=== PATIENT | female | born 1980 | race Asian ===

== ENCOUNTER 2016-05-07 09:25 | Inpatient (IN) | payer SELFPAY ==
[~2016-05-07] VITALS: Ht 160 cm; Wt 66.7 kg
[2016-05-07] MEDS ORDERED: LACTATED RINGERS 1,000 ML IV SCH (10:18)
[2016-05-07] MEDS ORDERED: NALBUPHINE HYDROCHLORIDE 10 MG/ML VIAL IVP PRN (10:20)
[2016-05-07] MEDS ORDERED: METHYLERGONOVINE 0.2 MG/ML AMP IM PRN (10:20)
[2016-05-07] MEDS ORDERED: CARBOPROST 250 MCG/ML AMP IM PRN (10:20)
[2016-05-07] MEDS ORDERED: PROMETHAZINE 25 MG/ML VIAL IVP PRN (10:20)
[2016-05-07] MEDS ORDERED: OXYTOCIN 10 UNITS/ML VIAL IM SCH (10:20)
[2016-05-07] MEDS ORDERED: PROMETHAZINE 25 MG/ML VIAL IVP SCH (10:20)
[2016-05-07] MEDS ORDERED: LIDOCAINE 1% 500 MG/50 ML VIAL INJ SCH (10:45)
[2016-05-07] MEDS ORDERED: LIDOCAINE 1% 50 ML ONE (10:50)
[2016-05-07] MEDS ORDERED: OXYTOCIN 10 UNITS/ML VIAL ONE (10:51)
[2016-05-07] MEDS ORDERED: OXYTOCIN 20 UNITS/LR PREMIX 1,000 ML IV SCH (11:00)
[2016-05-07] MEDS ORDERED: OXYTOCIN 20 UNITS/LR PREMIX 1,000 ML IV ONE ×2 (11:02→14:42)
[2016-05-07] MEDS ORDERED: MISOPROSTOL 100 MCG TAB ONE (14:44)
[2016-05-07] MEDS ORDERED: MISOPROSTOL 100 MCG TAB RC SCH (14:55)
[2016-05-07] MEDS ORDERED: CARBOPROST 250 MCG/ML AMP IM ONE (14:57)
[2016-05-07] MEDS ORDERED: INFLUENZA VIRUS VACCINE QUAD 0.5 ML SYR IMVAC SCH (22:50)
--- NOTE | 2016-05-08 10:31 | NUR ---
PATIENT HAS BEEN SCREENED AND CATEGORIZED LOW NUTRITION RISK. PATIENT WILL BE SEEN WITHIN 7 DAYS OF ADMISSION. 05/14/[address]
== END 2016-05-08 16:15 | disposition home or self-care (01) | DRG 775 ==
LOC: MLD 09:25 → MFCC 17:18
PROVIDERS: ADMIT Obstetrics & Gynecology; ATTEND Obstetrics & Gynecology
PROC: 10E0XZZ Delivery of Products of Conception, External Approach (ICD-10-PCS; principal; 2016-05-07)
PROC: 10907ZC Drainage of Amniotic Fluid, Therapeutic from Products of Conception, Via Natural or Artificial Opening (ICD-10-PCS; 2016-05-07)
PROC: 0HQ9XZZ Repair Perineum Skin, External Approach (ICD-10-PCS; 2016-05-07)
PROC: 3E0234Z Introduction of Serum, Toxoid and Vaccine into Muscle, Percutaneous Approach (ICD-10-PCS; 2016-05-07)
DX: O70.0 First degree perineal laceration during delivery (principal); O09.523 Supervision of elderly multigravida, third trimester; Z3A.39 39 weeks gestation of pregnancy; Z37.0 Single live birth; Z23 Encounter for immunization; Z28.21 Immunization not carried out because of patient refusal